=== PATIENT | male | born 2000 | race Two or more races ===

== ENCOUNTER 2025-02-22 23:08 | Emergency (ER) | payer OTHER ==
[~2025-02-22] VITALS: Ht 188 cm; Wt 77.1 kg
[2025-02-23 02:04] VITALS: BP 128/70; TEMP 98.5; O2SAT 98
[2025-02-23] MEDS ORDERED: PREG300C PO (02:11)
== END 2025-02-23 02:41 | disposition home or self-care (01) ==
LOC: ER 23:14
DX: G40.909 Epilepsy, unspecified, not intractable, without status epilepticus (principal); Z76.0 Encounter for issue of repeat prescription; Z79.899 Other long term (current) drug therapy; Z60.2 Problems related to living alone